=== PATIENT | female | born 1970 | race African-American/Black ===

== ENCOUNTER 2018-10-25 15:52 | Inpatient (IN) | payer OTHER ==
[2018-10-25 16:46] VITALS: BMI 28.3
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
[2018-10-25] MEDS ORDERED: MELATONIN 5 MG TABLETS PO PRN (17:30)
[2018-10-25] MEDS ORDERED: MAG HYDROX/AL HYDROX/SIMETH 30 ML UNIT-DOSE CUP PO PRN (17:30)
[2018-10-25] MEDS ORDERED: cloNIDine HCL 0.1 MG TABLET PO PRN (17:30)
[2018-10-25] MEDS ORDERED: MAGNESIUM HYDROX 2400MG/30ML ORAL SUSPENSION 30 ML CUP PO PRN (17:30)
[2018-10-25] MEDS ORDERED: MENTHOL/PHENOL 1 EACH UD MM PRN (17:30)
[2018-10-25] MEDS ORDERED: ACETAMINOPHEN 325 MG TABLET (FP) PO PRN ×2 (17:30)
[2018-10-25] MEDS ORDERED: NICOTINE POLACRILEX 2 MG GUM BUC PRN (17:30)
[2018-10-25] MEDS ORDERED: hydrOXYzine PAMOATE 25 MG CAPSULE (FP) PO PRN (17:30)
[2018-10-25] MEDS ORDERED: BISMUTH SUBSALICYLATE 524 MG/30 ML UD PO PRN (17:30)
[2018-10-25] MEDS ORDERED: METHADONE HCL 10 MG TABLET (FOR DETOX USE ONLY) PO ONE (17:30)
[2018-10-25] MEDS ORDERED: MAGNESIUM CITRATE 300 ML BOTTLE PO PRN (17:30)
[2018-10-25] MEDS: diazePAM 5 MG TABLET PO PRN (18:48)
[2018-10-25] MEDS: NICOTINE 21 MG/24 HOURS TOPICAL PATCH TD SCH (18:52)
[2018-10-25] MEDS: ALBUTEROL SO4 8 GM HFA INHALER IH PRN (22:16)
[2018-10-25] MEDS: THIAMINE HCL 100 MG TABLET (FP) PO SCH (22:19)
[2018-10-25] MEDS: diazePAM 5 MG TABLET PO SCH (22:46)
[2018-10-26] MEDS: diazePAM 5 MG TABLET PO SCH ×3 (05:34→21:30)
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
[2018-10-26 09:42] LABS: HEMATOCRIT 36.6 % (32.4-45.2); HEMOGLOBIN 12.1 GM/dL (10.7-15.3); MCH 27.9 pg (25.7-33.7); MCHC 33.1 g/dl (32.0-36.0); MEAN CELL VOLUME 84.4 fl (80-96); MEAN PLT VOLUME 8.5 fl (7.5-11.1); PLATELET COUNT 220 K/MM3 (134-434); RBC 4.33 M/mm3 (3.60-5.2); RDW 14.3 % (11.6-15.6); WHITE BLOOD COUNT 5.5 K/mm3 (4.0-10.0)
[2018-10-26] MEDS ORDERED: METHADONE HCL 5 MG TABLET (FOR DETOX USE ONLY) PO ONE (10:00)
[2018-10-26 10:01] LABS: ALBUMIN 3.5 g/dl (3.4-5.0); BILIRUBIN,TOTAL 0.3 mg/dL (0.2-1); BLOOD UREA NITROGEN 11.1 mg/dL (7-18); CALCIUM 8.9 mg/dL (8.5-10.1); CREATININE 0.6 mg/dL (0.55-1.3); POTASSIUM 3.7 mmol/L (3.5-5.1); TOT PROT 6.9 g/dl (6.4-8.2)
[2018-10-26] MEDS: NICOTINE 21 MG/24 HOURS TOPICAL PATCH TD SCH (10:03)
[2018-10-26] MEDS: PRENATAL VITAMINS W/ FOLIC ACID TABLET (FP) PO SCH (10:03)
[2018-10-26] MEDS: diazePAM 5 MG TABLET PO PRN ×2 (10:04→21:28)
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
[2018-10-26] MEDS ORDERED: COLLOIDAL OATMEAL 1 BAR EACH TP PRN (14:55)
[2018-10-26] MEDS ORDERED: COLLOIDAL OATMEAL 1 BAR EACH TP ONE (15:25)
[2018-10-26] MEDS: METHOCARBAMOL 500 MG TABLET PO PRN (19:52)
[2018-10-26] MEDS: IBUPROFEN 400 MG TABLET (FP) PO PRN (19:52)
[2018-10-26] MEDS: THIAMINE HCL 100 MG TABLET (FP) PO SCH (21:28)
[2018-10-26] MEDS ORDERED: SUVOREXANT 10 MG TABLET PO PRN (22:00)
[2018-10-27] MEDS: ALBUTEROL SO4 8 GM HFA INHALER IH PRN (05:58)
[2018-10-27] MEDS ORDERED: diazePAM 5 MG TABLET PO SCH (06:00)
[2018-10-27] MEDS: METHOCARBAMOL 500 MG TABLET PO PRN (07:34)
--- NOTE | 2018-10-27 07:37 | PN ---
S Progress Note Note: Patient's blood pressure is B/P 141/108. Patient is asymptomatic Vital Signs Temperature 97.2 F L 10/26/18 21:30 Pulse Rate 86 10/27/18 07:36 Respiratory Rate 18 10/27/18 00:30 Blood Pressure 141/108 H 10/27/18 07:36 O2 Sat by Pulse Oximetry (%) Action: Clonidine 0.1mg tablet oral ordered
[2018-10-27] MEDS ORDERED: cloNIDine HCL 0.1 MG TABLET PO ONE ×2 (07:53→14:00)
[2018-10-27] MEDS ORDERED: METHADONE HCL 10 MG TABLET (FOR DETOX USE ONLY) PO ONE (10:00)
[2018-10-27] MEDS: PRENATAL VITAMINS W/ FOLIC ACID TABLET (FP) PO SCH (10:25)
[2018-10-27] MEDS: NICOTINE 21 MG/24 HOURS TOPICAL PATCH TD SCH (10:26)
[2018-10-27] MEDS: IBUPROFEN 400 MG TABLET (FP) PO PRN (10:26)
[2018-10-27] MEDS ORDERED: PT OWN MED DRAWER 7, Y5N ONE (10:54)
--- NOTE | 2018-10-27 12:25 | PN ---
[facility] COWS - Scale Resting Pulse: 1= [place] 81-100 Sweatin= Chills/Flushing Restless Observation: 1= Difficult to Sit Still Pupil Size: 0= Normal to Room Light Bone or Joint Aches: 1= Mild Discomfort Runny Nose/ Eye Tearin= None GI Upset > 30mins: 0= None Tremor Observation of Outstretched Hands: 1= Tremor [place], Not Seen Yawning Observation: 0= None Anxiety or Irritability: 1=Feels Anxious/Irritable S Progress Note (SOAP) Subjective: sweats agitation Objective: 10/27/18 12:23 Vital Signs Temperature 98.1 F 10/27/18 08:02 Pulse Rate 82 10/27/18 08:05 Respiratory Rate 18 10/27/18 08:05 Blood Pressure 141/108 H 10/27/18 08:05 O2 Sat by Pulse Oximetry (%) Laboratory Tests 10/25/18 10/26/18 10/26/18 17:30 07:00 07:00 WBC 5.5 RBC 4.33 Hgb 12.1 Hct 36.6 MCV 84.4 MCH 27.9 MCHC 33.1 RDW 14.3 Plt Count 220 MPV 8.5 Sodium 142 Potassium 3.7 Chloride 107 Carbon Dioxide 29 Anion Gap 5 L BUN 11.1 Creatinine 0.6 Est GFR (CKD-EPI)AfAm 126.69 Est GFR (CKD-EPI)NonAf 109.31 Random Glucose 92 Calcium 8.9 Total Bilirubin 0.3 AST 10 L ALT 14 Alkaline Phosphatase 111 Total Protein 6.9 Albumin 3.5 POC Urine HCG, Qual Negative RPR Titer HIV 1&2 Ag/Ab, 4th Gen HIV 1&2 Antibody Screen HIV P24 Antigen 10/26/18 10/26/18 10/26/18 07:00 07:00 10:00 WBC RBC Hgb Hct MCV MCH MCHC RDW Plt Count MPV Sodium Potassium Chloride Carbon Dioxide Anion Gap BUN Creatinine Est GFR (CKD-EPI)AfAm Est GFR (CKD-EPI)NonAf Random Glucose Calcium Total Bilirubin AST ALT Alkaline Phosphatase Total Protein Albumin POC Urine HCG, Qual RPR Titer Nonreactive HIV 1&2 Ag/Ab, 4th Gen Non reactive HIV 1&2 Antibody Screen Cancelled HIV P24 Antigen Cancelled labs noted [id number] ambulating no acute distress Assessment: 10/27/18 12:25 mild withdrawals Plan: continue detox increase fluids d/c in am
[2018-10-27 13:33] VITALS: BP 154/95; PULSE 72; TEMP 97.9
--- NOTE | 2018-10-27 17:26 | DS ---
[facility] Detox Discharge Summary Admission Date: 10/25/18 Discharge Date: 10/27/18 - History Present History: Opioid Dependence, Sedative Dependence Pertinent Past History: Pt was admitted for xanax and heroin withdrawal. Pt did well and wants to leave a day early. - Physical Exam Results Vital Signs: Vital Signs Temperature 97.9 F 10/27/18 13:33 Pulse Rate 72 10/27/18 13:33 Respiratory Rate 18 10/27/18 13:33 Blood Pressure 154/95 10/27/18 13:33 O2 Sat by Pulse Oximetry (%) - Treatment Hospital Course: Detox Protocol Followed, Detoxed Safely, Responded well, Discharged Condition Good - Medication Discharge Medications: Ambulatory Orders Alprazolam 0.25 mg PO BID PRN 10/25/18 - Diagnosis (1) Opiate withdrawal Current Visit: Yes Status: Acute (2) Anxiety disorder Current Visit: Yes Status: Chronic - AMA Did Patient Leave Against Medical Advice: No
[2018-10-27] MEDS ORDERED: cloNIDine HCL 0.1 MG TABLET PO SCH (22:00)
[2018-10-28] MEDS ORDERED: METHADONE HCL 5 MG TABLET (FOR DETOX USE ONLY) PO ONE (06:00)
[2018-10-28] MEDS ORDERED: diazePAM 5 MG TABLET PO ONE (06:00)
--- NOTE | 2018-10-28 10:57 | EKG ---
Test Reason : Blood Pressure : / mmHG Vent. Rate : 086 BPM Atrial Rate : 086 BPM P-R Int : 150 ms QRS Dur : 086 ms QT Int : 422 ms P-R-T Axes : 057 027 029 degrees QTc Int : 504 ms NORMAL SINUS RHYTHM NONSPECIFIC T WAVE ABNORMALITY ABNORMAL ECG NO PREVIOUS ECGS AVAILABLE Confirmed by AIMEE BESS MD ([id number]) on 10/28/2018 10:56:42 AM Referred By: DR LOPEZ Confirmed By:AIMEE BESS MD
== END 2018-10-27 17:20 | disposition home or self-care (01) | DRG 773 ==
LOC: YASAS 15:52 → Y6N 17:59
PROVIDERS: ADMIT Surgery; ATTEND Surgery
PROC: HZ2ZZZZ Detoxification Services for Substance Abuse Treatment (ICD-10-PCS; principal; 2018-10-25)
DX: F11.23 Opioid dependence with withdrawal (principal); F17.210 Nicotine dependence, cigarettes, uncomplicated; F41.9 Anxiety disorder, unspecified; F19.24 Other psychoactive substance dependence with psychoactive substance-induced mood disorder; F19.282 Other psychoactive substance dependence with psychoactive substance-induced sleep disorder; J45.909 Unspecified asthma, uncomplicated
CPT/HCPCS: 36415; 80053; 81025; 85027; 86480; 86593; 87389; 93005; 93010; J0735